=== PATIENT | male | born 1960 | race Caucasian/White ===

== ENCOUNTER 2024-06-27 11:04 | Day surgery (SDC) | payer OTHER ==
[~2024-06-27] VITALS: Ht 177.8 cm; Wt 84.9 kg
[~2024-06-27 11:04] MED LIST: Albuterol17 G1 INH; Balanced Salt Epinephrine Irrigation Solution 500 mL IR SCH; Lidocaine HCl/Pf 1% 5 ML VIAL ONE; Lidocaine HCl/Pf 1% 5 ML VIAL XX SCH; Moxifloxacin HCL 0.5 MG/0.1 ML 0.4MLSYR RIGHTEYE SCH; NS 500 ML IV ONE; PHENYLEPHRINE\\TROPICAMIDE\\TETRACAINE OPHTHALMIC DILATING SOLN RIGHTEYE PRN; Povidone-Iodine 450 DROP/30 ML Solution ONE; Povidone-Iodine 450 DROP/30 ML Solution RIGHTEYE SCH; Tetracaine HCl/Pf 0.5% Opth Soln 4 ml ONE; Triamcinolone Inj Susp 40 MG / ML 1ML Vial INJ SCH; Triamcinolone Inj Susp 40 MG / ML 1ML Vial ONE; Zithromax250 MG PO
[2024-06-27] MEDS ORDERED: LOSA50 PO (11:37)
[2024-06-27] MEDS ORDERED: NS 500 ML IV ONE (11:45)
[2024-06-27] MEDS ORDERED: Midazolam HCl 1MG / ML 2ML Vial ONE (12:03)
== END 2024-06-27 13:02 | disposition home or self-care (01) ==
LOC: ORSCSDS 11:04
PROVIDERS: Ophthalmology
PROC: 08RJ3JZ Replacement of Right Lens with Synthetic Substitute, Percutaneous Approach (ICD-10-PCS; principal; 2024-06-27 12:30)
DX: H25.813 Combined forms of age-related cataract, bilateral (principal); I10 Essential (primary) hypertension; Z86.73 Personal history of transient ischemic attack (TIA), and cerebral infarction without residual deficits; Z79.899 Other long term (current) drug therapy
CPT/HCPCS: J2003; J2250; J3301; J7040; V2632

== ENCOUNTER 2024-07-04 10:03 | Day surgery (SDC) | payer OTHER ==
[~2024-07-04] VITALS: Ht 177.8 cm; Wt 82.2 kg
[~2024-07-04 10:03] MED LIST changes: +LOSA50 PO; -Lidocaine HCl/Pf 1% 5 ML VIAL ONE; +Moxifloxacin HCL 0.5 MG/0.1 ML 0.4MLSYR LEFTEYE SCH; -Moxifloxacin HCL 0.5 MG/0.1 ML 0.4MLSYR RIGHTEYE SCH; -NS 500 ML IV ONE; +PHENYLEPHRINE\\TROPICAMIDE\\TETRACAINE OPHTHALMIC DILATING SOLN LEFTEYE PRN; -PHENYLEPHRINE\\TROPICAMIDE\\TETRACAINE OPHTHALMIC DILATING SOLN RIGHTEYE PRN; +Povidone-Iodine 450 DROP/30 ML Solution LEFTEYE SCH; -Povidone-Iodine 450 DROP/30 ML Solution RIGHTEYE SCH
[2024-07-04] MEDS ORDERED: Lactated Ringer's 1,000 ML IV ONE (10:45)
[2024-07-04] MEDS ORDERED: FentaNYL Citrate 50 MCG/ML 2 ML Injection ONE (11:19)
[2024-07-04] MEDS ORDERED: Midazolam HCl 1MG / ML 2ML Vial ONE (11:19)
[2024-07-04] MEDS ORDERED: Glycopyrrolate 0.2 MG/ML 5ML VIAL ONE (11:38)
[2024-07-04] MEDS ORDERED: ePHEDrine Sulfate 50 MG/ML 1ML Injection ONE (11:40)
== END 2024-07-04 12:17 | disposition home or self-care (01) ==
LOC: ORSCSDS 10:03
PROVIDERS: Ophthalmology
PROC: 08RK3JZ Replacement of Left Lens with Synthetic Substitute, Percutaneous Approach (ICD-10-PCS; principal; 2024-07-04 11:30)
DX: H25.812 Combined forms of age-related cataract, left eye (principal); Z96.1 Presence of intraocular lens; I10 Essential (primary) hypertension; Z86.73 Personal history of transient ischemic attack (TIA), and cerebral infarction without residual deficits; Z79.899 Other long term (current) drug therapy
CPT/HCPCS: J2250; J3010; J3301; J7120; V2632

== ENCOUNTER 2024-08-31 16:04 | Observation (INO) | payer OTHER ==
[~2024-08-31] VITALS: Ht 177.8 cm; Wt 80.4 kg
[~2024-08-31 16:04] MED LIST changes: -Balanced Salt Epinephrine Irrigation Solution 500 mL IR SCH; -Lidocaine HCl/Pf 1% 5 ML VIAL XX SCH; -Moxifloxacin HCL 0.5 MG/0.1 ML 0.4MLSYR LEFTEYE SCH; -PHENYLEPHRINE\\TROPICAMIDE\\TETRACAINE OPHTHALMIC DILATING SOLN LEFTEYE PRN; -Povidone-Iodine 450 DROP/30 ML Solution LEFTEYE SCH; -Povidone-Iodine 450 DROP/30 ML Solution ONE; -Tetracaine HCl/Pf 0.5% Opth Soln 4 ml ONE; -Triamcinolone Inj Susp 40 MG / ML 1ML Vial INJ SCH; -Triamcinolone Inj Susp 40 MG / ML 1ML Vial ONE
[2024-08-31 16:40] LABS: BASOPHILS ABSOLUTE AUTO 0.03 K/mm3 (0.00-0.23); BASOPHILS PERCENT AUTO 0 % (0-2); EOSINOPHILS ABSOLUTE AUTO 0.01 K/mm3 (0.00-0.68); EOSINOPHILS PERCENT AUTO 0 % (0-6); Hematocrit 45.5 % (37.0-53.0); Hemoglobin 14.8 g/dL (13.5-17.5); IMMATURE GRAN ABSOLUTE AUTO 0.02 K/mm3 (0.00-0.10); IMMATURE GRAN PERCENT AUTO 0 % (0-1); LYMPHOCYTES ABSOLUTE AUTO 0.66 K/mm3 (0.84-5.20); LYMPHOCYTES PERCENT AUTO 5 % (21-46); MONOCYTES ABSOLUTE AUTO 0.36 K/mm3 (0.16-1.47); MONOCYTES PERCENT AUTO 3 % (4-13); Mean Corpuscular HGB Conc 32.5 g/dL (31.5-36.5); Mean Corpuscular Volume 87 fL (80-100); NEUTROPHILS ABSOLUTE AUTO 11.98 K/mm3 (1.96-9.15); NEUTROPHILS PERCENT AUTO 92 % (41-73); NRBC ABSOLUTE 0.00 K/mm3 (0.00-0.02); NRBC Auto 0.0 /100 WBC (0.0-0.2); Platelet Count 437 K/mm3 (150-400); RDW Coefficient Variation 13.5 % (11.7-14.2); RDW Standard Deviation 43.2 fL (35.1-46.3)
[2024-08-31 16:56] LABS: Alanine Aminotransfer (ALT/SGP 130.0 U/L (12-78); Albumin, Blood 4.1 g/dL (3.4-5.0); Albumin/Globulin Ratio 1.4 (0.8-1.8); Anion Gap 11.0 mmol/L (3-11); Aspartate Aminotrans (AST/SGOT 162.0 U/L (12-37); Bilirubin, Total 2.1 mg/dL (0.1-1.0); Blood Urea Nitrogen 27.0 mg/dL (8-24); CO2, Blood 25.0 mmol/L (21-32); Calcium, Blood 9.5 mg/dL (8.5-10.1); Chloride, Blood 106.0 mmol/L (98-108); Creatinine, Blood 0.9 mg/dL (0.60-1.20); Globulin, Blood 2.9 g/dL (2.2-4.0); Glucose, Blood 156.0 mg/dL (70-99); Potassium, Blood 3.9 mmol/L (3.5-5.5); Sodium, Blood 138.0 mmol/L (136-145); Total Protein, Blood 7.0 g/dL (6.4-8.2)
[2024-08-31] MEDS ORDERED: Ondansetron HCl 2 MG / ML 2ML Vial IV ONE (18:15)
[2024-08-31] MEDS ORDERED: Ampicillin Sod/Sulbactam Sod 1.5 GM in NS 100 ML IV ONE (18:15)
[2024-08-31] MEDS ORDERED: Morphine Sulfate 4 MG/1 ML Injection IV ONE (18:15)
[2024-08-31] MEDS ORDERED: OxyCODONE 5 mg/Acetamin 325 mg TABLET PO PRN (19:20)
[2024-08-31] MEDS ORDERED: NS 1,000 ML IV SCH (19:20)
[2024-08-31] MEDS ORDERED: Ondansetron HCl 2 MG / ML 2ML Vial IV PRN (19:20)
[2024-08-31] MEDS ORDERED: Lactobacil 2-S.Thermo-Bifido 1 1 Cap PO SCH (21:00)
[2024-08-31 21:30] VITALS: BP 151/76
[2024-09-01] VITALS (16 sets, daily range): BP systolic 101–149; BP diastolic 60–91
[2024-09-01] MEDS ORDERED: Ampicillin Sod/Sulbactam Sod 3 GM in NS 100 ML IV SCH
[2024-09-01 05:33] LABS: BASOPHILS ABSOLUTE AUTO 0.04 K/mm3 (0.00-0.23); BASOPHILS PERCENT AUTO 0 % (0-2); EOSINOPHILS ABSOLUTE AUTO 0.09 K/mm3 (0.00-0.68); EOSINOPHILS PERCENT AUTO 1 % (0-6); Hematocrit 39.4 % (37.0-53.0); Hemoglobin 12.9 g/dL (13.5-17.5); IMMATURE GRAN ABSOLUTE AUTO 0.02 K/mm3 (0.00-0.10); IMMATURE GRAN PERCENT AUTO 0 % (0-1); LYMPHOCYTES ABSOLUTE AUTO 1.24 K/mm3 (0.84-5.20); LYMPHOCYTES PERCENT AUTO 14 % (21-46); MONOCYTES ABSOLUTE AUTO 0.65 K/mm3 (0.16-1.47); MONOCYTES PERCENT AUTO 7 % (4-13); Mean Corpuscular HGB Conc 32.7 g/dL (31.5-36.5); Mean Corpuscular Volume 87 fL (80-100); NEUTROPHILS ABSOLUTE AUTO 6.90 K/mm3 (1.96-9.15); NEUTROPHILS PERCENT AUTO 77 % (41-73); NRBC ABSOLUTE 0.00 K/mm3 (0.00-0.02); NRBC Auto 0.0 /100 WBC (0.0-0.2); Platelet Count 389 K/mm3 (150-400); RDW Coefficient Variation 13.8 % (11.7-14.2); RDW Standard Deviation 44.2 fL (35.1-46.3)
[2024-09-01 06:05] LABS: Alanine Aminotransfer (ALT/SGP 476.0 U/L (12-78); Albumin, Blood 3.5 g/dL (3.4-5.0); Albumin/Globulin Ratio 1.5 (0.8-1.8); Anion Gap 4.0 mmol/L (3-11); Aspartate Aminotrans (AST/SGOT 317.0 U/L (12-37); Bilirubin, Total 0.9 mg/dL (0.1-1.0); Blood Urea Nitrogen 21.0 mg/dL (8-24); CO2, Blood 27.0 mmol/L (21-32); Calcium, Blood 8.1 mg/dL (8.5-10.1); Chloride, Blood 109.0 mmol/L (98-108); Creatinine, Blood 0.91 mg/dL (0.60-1.20); Globulin, Blood 2.4 g/dL (2.2-4.0); Glucose, Blood 91.0 mg/dL (70-99); Potassium, Blood 4.0 mmol/L (3.5-5.5); Sodium, Blood 136.0 mmol/L (136-145); Total Protein, Blood 5.9 g/dL (6.4-8.2)
--- NOTE | 2024-09-01 07:31 | NUR ---
SHIFT SUMMARY ADMITTED FOR ABD PAIN LAST NIGHT, DX W/ACUTE ROSEMARIE. DENIES ANY PAIN SINCE ARRIVING TO FLOOR. DENIES N/V. VSS. TELE AFIB HR 58. AOX4. REPORTS PARTIAL BLINDNESS TO L EYE. CALL LIGHT & BED ALARM IN PLACE FOR SAFETY. NEPHEW REPORTS PT FALLS FREQUENTLY AT HOME. PENDING SURGERY TODAY & HAS BEEN NPO SINCE 0000.
--- NOTE | 2024-09-01 09:26 | NUR ---
PRE-SURGICAL WIPE DOWN PACKET COMPLETE
--- NOTE | 2024-09-01 09:50 | NUR ---
PT BROUGHT TO PACU VIA [facility] FROM [facility] FOR PREOP CARE AT 0935. PLEASANT AND COOPERATIVE. DENIES PAIN/NAUSEA. AFEBRILE/CURRENT AFIB IN LOWER 50s PER CONSTRUCTION REP. SURGICAL PACK COMPLETE. DR TAM AT [facility] SIDE SPEAKING w/PATIENT. LR AT TKO. SURGICAL HAT/SLEEVES/BP CUFF PLACED. NO COMPLAINTS.
[2024-09-01] MEDS ORDERED: Bupivacaine 0.5% HCl 5 MG/ML 30MLVIAL ONE (10:01)
[2024-09-01] MEDS ORDERED: Midazolam HCl 1MG / ML 2ML Vial ONE (10:04)
[2024-09-01] MEDS ORDERED: FentaNYL Citrate 50 MCG/ML 2 ML Injection ONE ×2 (10:04→11:31)
[2024-09-01] MEDS ORDERED: Rocuronium Bromide 10 MG/ML 5ML Injection IV ONE (10:05)
[2024-09-01] MEDS ORDERED: Ondansetron HCl 2 MG / ML 2ML Vial ONE (10:07)
[2024-09-01] MEDS ORDERED: Dexamethasone Sod Phos 10 MG/ML 1ML VIAL ONE (10:07)
--- NOTE | 2024-09-01 10:21 | NUR ---
PT TO OR 1 VIA SEUN IN STABLE CONDITION AT 1025.
[2024-09-01] MEDS ORDERED: Phenylephrine HCl 100 MCG/ML-NS 10MLSYR (1MG/10ML) ONE (10:42)
[2024-09-01] MEDS ORDERED: Glycopyrrolate 0.2 MG/ML 5ML VIAL ONE (10:57)
[2024-09-01] MEDS ORDERED: Ondansetron HCl 2 MG / ML 2ML Vial IV PRN (11:00)
[2024-09-01] MEDS ORDERED: Prochlorperazine Edisylate 10 mg Vial IV PRN (11:00)
[2024-09-01] MEDS ORDERED: FentaNYL Citrate 50 MCG/ML 2 ML Injection IV PRN ×3 (11:00→11:05)
[2024-09-01] MEDS ORDERED: HYDROmorphone HCl/Pf 1MG SYR IV PRN (11:05)
[2024-09-01] MEDS ORDERED: Sugammadex Sodium 200 MG/2ML SDV (100 MG/ML) ONE (11:27)
[2024-09-01] MEDS ORDERED: Ketorolac Tromethamine 30mg Vial ONE (11:36)
[2024-09-01] MEDS ORDERED: ELIQUIS5 M2 PO (15:50)
--- NOTE | 2024-09-01 16:02 | NUR ---
DISCHARGE S/P LAP ROSEMARIE. PT AMBULATING WELL IN ROOM. TOLERATING DIET, NO NAUSEA. DENIES PAIN. ABLE TO VOID. ALL INSTRUCTIONS GONE OVER WITH PATIENT. IV REMOVED WNL. AWAITING HIS NEICE FOR INSTRUCTOR TRAFFIC SAFETY AND WILL BE ESCORTED OUT VIA WHEELCHAIR. CURRENTLY GETTING DRESSED IN ROOM.
== END 2024-09-01 16:21 | disposition home or self-care (01) ==
LOC: ER 16:04 → SURS 16:05 → ER 19:18 → SURS 20:50 → ER 09-01 14:55 → SURS 09-01 14:55
PROVIDERS: Nurse Practitioner Acute Care; Student in an Organized Health Care Education/Training Program; Surgery; ADMIT Internal Medicine
PROC: 0FT44ZZ Resection of Gallbladder, Percutaneous Endoscopic Approach (ICD-10-PCS; principal; 2024-09-01 08:30)
PROC: BF53200 Other Imaging of Gallbladder and Bile Ducts using Fluorescing Agent, Indocyanine Green Dye, Intraoperative (ICD-10-PCS; principal; 2024-09-01 08:30)
DX: K80.12 Calculus of gallbladder with acute and chronic cholecystitis without obstruction (principal); R74.01 Elevation of levels of liver transaminase levels; I48.91 Unspecified atrial fibrillation; I10 Essential (primary) hypertension; I48.92 Unspecified atrial flutter; D64.9 Anemia, unspecified; I69.998 Other sequelae following unspecified cerebrovascular disease; H53.8 Other visual disturbances; D72.829 Elevated white blood cell count, unspecified; D75.839 Thrombocytosis, unspecified; Z79.899 Other long term (current) drug therapy
CPT/HCPCS: 36415; 76705; 80053; 83690; 84443; 85025; 88304; 93005; 93010; 93306; 96365; 96375; 99285-25; A9270; G0378; J0295; J1100; J1885; J2250; J2270; J2371; J2405; J2704; J3010; J7030; J7120